=== PATIENT | female | born 1945 | race Caucasian/White ===

== ENCOUNTER 2017-02-12 13:54 | Outpatient (CLI) | payer MEDICARE, BC ==
[2017-02-12 16:10] LABS: #Basophils 0.1 thou/uL (0.0-0.2); #Eosinphils 0.1 thou/uL (0.0-0.7); #Lymphocytes 2.3 thou/uL (1.20-3.40); #Monocytes 0.5 thou/uL (0.11-0.59); #Neutrophils 2.9 thou/uL (1.40-6.50); %Basophils 1.2 % (0.0-1.0); %Eosinophils 1.2 % (0.0-10.0); %Lymphocytes 39.4 % (21.0-51.0); %Monocytes 7.9 % (0.0-10.0); Hematocrit 35.2 % (36.0-47.0); Mean Platelet Volume 9.5 fL (7.4-10.4); Red Blood Cell (RBC) Count 4.44 mill/uL (4.20-5.40); White Blood Cell (WBC) Count 5.8 thou/uL (4.8-10.8)
[2017-02-12 16:27] LABS: ALT (SGPT) 10 U/L (8-55); AST (SGOT) 17 U/L (5-34); Alkaline Phosphatase 181 U/L (40-150); Anion Gap 13 mmol/L (10-20); BUN (Urea Nitrogen) 13 mg/dL (9.8-20.1); Bilirubin, Total 0.4 mg/dL (0.2-1.2); Calc. Creatinine Clearance 0 mL/min (70-130); Calcium 8.6 mg/dL (7.8-10.44); Carbon Dioxide 23 mmol/L (23-31); Chloride 109 mmol/L (98-107); Estimated GFR-MDRD 45; Globulin 2.2 g/dL (2.4-3.5); Protein, Total 5.9 g/dL (6.0-8.3)
--- NOTE | 2017-02-12 18:08 | EKG ---
Test Reason : Blood Pressure : / mmHG Vent. Rate : 090 BPM Atrial Rate : 090 BPM P-R Int : 150 ms QRS Dur : 076 ms QT Int : 398 ms P-R-T Axes : 051 056 028 degrees QTc Int : 486 ms Sinus rhythm with occasional Premature ventricular complexes and Possible Premature atrial complexes with Abberant conduction Cannot rule out Anterior infarct (cited on or before 19-JAN-1999) Abnormal ECG When compared with ECG of 19-JAN-1999 11:57, Premature ventricular complexes are now Present Abberant conduction is now Present Confirmed by LAURA LA ([id number]) on 02/12/2017 6:08:32 PM Referred By: VAISHNAVI Confirmed By:LAURA LA
== END 2017-02-12 13:55 | disposition home or self-care (01) ==
LOC: LABBT 13:54
PROVIDERS: ATTEND Surgery
DX: Z01.818 Encounter for other preprocedural examination (principal); C50.919 Malignant neoplasm of unspecified site of unspecified female breast
CPT/HCPCS: 80053; 85025; 93005; 93010

== ENCOUNTER 2017-02-21 06:55 | Day surgery (SDC) | payer MEDICARE, BC ==
[2017-02-12 14:18] VITALS: BMI 29.8
[2017-02-21] MEDS ORDERED: Fentanyl 100 MCG/2 ML VIAL ONE (10:35)
--- NOTE | 2017-02-21 10:35 | NM ---
LEFT BREAST LYMPHOSCINTIGRAPHY: Date: 02/21/17 [facility] HEAD: Dr. Edmond. COMPLICATIONS: None. HISTORY: Left breast cancer. TECHNIQUE: Prior to the procedure, the risks and benefits of a left breast lymphoscintigraphy were explained to the patient who consented fully to the procedure. FINDINGS: Uptake is seen in the periareolar region of the left breast. There is also uptake in axillary lymph n ode consistent with the left axillary sentinel lymph node. IMPRESSION: Left axillary sentinel lymph node. POS: [facility]
[2017-02-21] MEDS ORDERED: Isosulfan Blue 50 MG/5 ML VIAL ONE (10:38)
[2017-02-21] MEDS ORDERED: Bupivacaine/Epinephrine 0.25% 30 ML VIAL ONE (10:38)
[2017-02-21] MEDS ORDERED: Lidocaine 2% PF 5 ML VIAL ONE (10:44)
[2017-02-21] MEDS ORDERED: Lidocaine 2% w/Epinephrine 1:200K 20 ML VIAL ONE (10:44)
[2017-02-21] MEDS ORDERED: CEFAZOLIN/Water 2 GM/20 ML SYRINGE ONE (10:49)
--- NOTE | 2017-02-21 12:17 | MMO ---
LEFT BREAST NEEDLE LOCALIZATION USING MAMMOGRAPHIC GUIDANCE AND SPECIMEN RADIOGRAPH: Date: 02/21/17 HISTORY: Left breast cancer. PROCEDURE: 1. Left breast needle localization using mammographic guidance. 2. Specimen radiograph. REHABILITATION THERAPY TECHNICIAN: Dr. Edmond. COMPLICATIONS: None. ANESTHESIA: 5 mL of buffered 1% lidocaine. TECHNIQUE: Prior to the procedure, the risks and benefits of a needle localization of left breast biopsy were ex plained to the patient and she consented fully to the procedure. Approach from lateral was performed. The biopsy clip was localized by the stereotactic grid. The late ral aspect of the breast was prepped with betadine. Lidocaine was used to anesthetize the skin and soft tissues down towards the biopsy clip. A 7.5 cm Abeelo francine needle was then placed perpendicular to the grid. A picture was taken, showing the needle immedia tely adjacent to the biopsy clip. The patient was taken out of compression and an orthogonal view was performed, showing the needle and biopsy clip in good position in relation to the biopsy clip. This was then secured to the patient. The patient was taken to day surgery for surgical excision. A specimen radiograph was performed while the patient was still in the operating room. The biopsy cli p was seen in the surgical specimen. The needle had been removed and the wire was still in place. IMPRESSION: Status post successful needle localization of left breast biopsy clip. POS: [facility]
[2017-02-21] MEDS ORDERED: diphenhydrAMINE 50 MG/ML VIAL ONE (12:55)
[2017-02-21] MEDS ORDERED: Propofol 200 MG/20 ML VIAL ONE (14:19)
[2017-02-21] MEDS ORDERED: Dexamethasone 20 MG/5 ML VIAL ONE (14:19)
[2017-02-21] MEDS ORDERED: Lidocaine 1% PF 5 ML VIAL ONE (14:19)
[2017-02-21] MEDS ORDERED: Ondansetron HCl/PF 4 MG/2 ML Vial ONE (14:19)
--- NOTE | 2017-02-21 14:39 | OP ---
PREOPERATIVE DIAGNOSIS: Left breast cancer. SURGEON: Woody Gonzales M.D. PROCEDURES PERFORMED: Lymphoscintigraphy, left needle localization lumpectomy with sentinel lymph no de biopsy x2. INDICATIONS: This is a 71-year-old female who had an abnormal mammogram, underwent core needle biops y in Radiology, which was positive for infiltrating ductal carcinoma. This was not palpable preopera tive. FINDINGS: Successful removal by specimen mammography. Two sentinel nodes were found, both negative by touch prep. PROCEDURE IN DETAIL: After informed consent was obtained, the patient was taken to the operating benito m and given general endotracheal anesthesia. She had undergone injection of radionucleotide as well as placement of the localization needle in radiology department. Lymphazurin 3 mL was infiltrated garcia bareolar and peritumoral. Then, the left breast, axilla and arm were prepped and draped in the usual fashion. The Neoprobe was used and a baseline count of 18 was performed. The transcutaneous counts of 50 was found. A transverse axillary incision was performed. In vivo counts of 65 found and then ex vivo counts of 75 found on a lymph node. The lymph node was ligated both the efferent and affere nt lymphatics and tied with 3-0 Vicryl ties. It was sent as sentinel node #1. The Neoprobe was rein serted and a second hot spot was found with in vivo counts of 25. Then a blue node was found and it had efferent and afferent lymphatics that were ligated with 3-0 Vicryl ties. Ex vivo counts of 55 we re found. It was sent as sentinel node #2. Hemostasis assured with electrocautery. While waiting o n the results of the sentinel nodes, a circumareolar incision was performed. The subcu divided sharp ly. The breast tissue was excised around the palpable needle circumferentially. It was then excised and marked with the needle lateral, a blue suture superior, and a black suture anterior. It was sen t to pathology for further analysis. Hemostasis was achieved with electrocautery. The wound thoroug hly irrigated. At this point, after control of hemostasis, the specimen mammogram came back that the clip was in the specimen. The subcutaneous was reapproximated with interrupted 3-0 Vicryl. The ski n closed with a running subcuticular 4-0 Rapide. Then the sentinel lymph nodes came back both negati ve by touch prep. Hemostasis assured. Subcutaneous reapproximated with interrupted 3-0 Vicryl and s kin closed with a running subcuticular 4-0 Rapide. Steri-Strips applied. Sterile bandage applied. The patient tolerated the procedure well and transferred to recovery in good condition. Sponge and n eedle count verified correct x2.
== END 2017-02-21 13:50 | disposition home or self-care (01) ==
LOC: SDC 06:55
PROVIDERS: ATTEND Surgery
PROC: 0HBU0ZZ Excision of Left Breast, Open Approach (ICD-10-PCS; principal; 2017-02-21)
PROC: 07B60ZX Excision of Left Axillary Lymphatic, Open Approach, Diagnostic (ICD-10-PCS; 2017-02-21)
DX: D05.12 Intraductal carcinoma in situ of left breast (principal); M19.90 Unspecified osteoarthritis, unspecified site; M06.9 Rheumatoid arthritis, unspecified; K21.9 Gastro-esophageal reflux disease without esophagitis; Z17.0 Estrogen receptor positive status [ER+]; Z79.890 Hormone replacement therapy; Z79.899 Other long term (current) drug therapy; Z86.010 Personal history of colon polyps; Z85.820 Personal history of malignant melanoma of skin; Z80.9 Family history of malignant neoplasm, unspecified; Z82.49 Family history of ischemic heart disease and other diseases of the circulatory system; Z82.3 Family history of stroke; Z90.710 Acquired absence of both cervix and uterus; Z90.49 Acquired absence of other specified parts of digestive tract; Z90.89 Acquired absence of other organs; Z90.722 Acquired absence of ovaries, bilateral; Z98.84 Bariatric surgery status; Z98.890 Other specified postprocedural states
CPT/HCPCS: 19281; 19301; 38525; 76098; 78195; 82962; 96374; A9541; Q9968; 36416; 88307; 88333; 88334; 88342; J1100; J1200; J2001; J2405; J2704; J3010

== ENCOUNTER 2017-03-22 10:30 | Inpatient (IN) | payer MEDICARE, BC ==
[2017-03-22 11:27] VITALS: BMI 29.2
[2017-03-26] MEDS ORDERED: Scopolamine 1.5 mg/72 hour Patch ONE (08:30)
[2017-03-26] MEDS ORDERED: Bupivacaine/Epinephrine 0.25% 30 ML VIAL ONE (09:17)
[2017-03-26] MEDS ORDERED: Fentanyl 100 MCG/2 ML VIAL ONE ×3 (09:21→13:42)
[2017-03-26] MEDS ORDERED: HYDROmorphone 0.5 MG/0.5 ML SYRINGE ONE ×2 (09:22→11:16)
[2017-03-26] MEDS ORDERED: CEFAZOLIN/Water 2 GM/20 ML SYRINGE ONE (09:25)
[2017-03-26] MEDS ORDERED: Promethazine HCl 25 MG/ML VIAL IM PRN (12:37)
[2017-03-26] MEDS ORDERED: Ondansetron HCl/PF 4 MG/2 ML Vial IVP PRN ×2 (12:37→15:22)
[2017-03-26] MEDS ORDERED: Morphine 4 MG/ML Carpuject SLOW IVP PRN ×2 (12:37→13:06)
[2017-03-26] MEDS ORDERED: Dextrose 5% in Water 1,000 ML IV PRN (12:37)
[2017-03-26] MEDS ORDERED: HYDROcodone/Acetaminophen 10/325 mg Tablet PO PRN ×2 (12:37)
[2017-03-26] MEDS ORDERED: Dextrose 50% Abboject 50 ML SYRINGE SLOW IVP PRN (12:37)
[2017-03-26] MEDS ORDERED: hydrALAZINE 20 MG/ML VIAL SLOW IVP PRN (12:37)
--- NOTE | 2017-03-26 12:58 | OP ---
PREOPERATIVE DIAGNOSIS: Left breast cancer. SURGEON: Woody Gonzales M.D. TRACTOR SWEEPER OPERATOR: Elizabeth Denise. PROCEDURE PERFORMED: Bilateral nipple-sparing mastectomy. INDICATIONS: A 71-year-old female who had undergone a needle localization lumpectomy on the left. S he came back with very extensive ductal carcinoma in situ with all margins were positive. FINDINGS: There was a seroma cavity on the left side, got the entire thing out, but it was right on the muscle, so I did take a little bit of muscle with specimen. No obvious palpable masses. DESCRIPTION OF PROCEDURE: After informed consent was obtained, the patient was taken to the operatin g room and given general endotracheal anesthesia. She was placed in the supine position. Her chest was prepped and draped in the usual fashion. Started on the right, a 6 cm incision was performed erica roximately 1 cm above the inframammary crease. This was done with the plasma blade and then on the r ight side, I found the plane between breast tissue and subcutaneous fat inferiorly down to the roller pneumatic ior fascia. Then a posterior dissection was performed utilizing the plasma blade to the level of cla vicle superior, the sternum medially, the latissimus laterally. Then, anterior, it was taken off bet ween the breast tissue and subcutaneous plane with the plasma blade. A suture was used to jose g the n ipple area which was blue and also anterior, then it was removed. Hemostasis achieved with the plasm a blade and electrocautery. The wound thoroughly irrigated. A drain was placed and the subcutaneous reapproximated with interrupted 3-0 Vicryl and skin closed with a running subcuticular 4-0 Rapide. I then moved to the left side. Again, an inferior breast incision was performed with the plasma blad e 1 cm above the inframammary crease, 6 cm in length. At this time, I went anterior, first found the plane between subcutaneous tissue and breast tissue and divided circumferentially to the level of cl avicle superior, the sternum medially down to the inferior portion of the breast and latissimus later al. Then went posteriorly along to include the pectoralis fascia. Now, there was a seroma cavity th at went down to the muscle, some muscle was excised with this. It was marked with a suture at the ni pple, blue, a black suture superior and a white suture lateral. Hemostasis achieved with electrocaut bridget and the plasma blade. The wound thoroughly irrigated. Drain was placed and brought out through a separate stab wound. The subcutaneous reapproximated with interrupted 3-0 Vicryl and skin closed w ith a running subcuticular 4-0 Rapide. Steri-Strips applied. Sterile bandage applied. The patient tolerated the procedure well and transferred to recovery in good condition. Sponge and needle count verified correct x2.
[2017-03-26] MEDS ORDERED: PROPOFOL 200 MG/20 ML VIAL ONE (13:30)
[2017-03-26] MEDS ORDERED: Lidocaine 1% PF 5 ML VIAL ONE (13:30)
[2017-03-26] MEDS ORDERED: Metoprolol Tartrate 5 MG/5 ML VIAL ONE (13:30)
[2017-03-26] MEDS ORDERED: Glycopyrrolate 0.2 MG/ML 5 ML SYRINGE ONE (13:30)
[2017-03-26] MEDS ORDERED: Ondansetron HCl/PF 4 MG/2 ML Vial ONE (13:30)
[2017-03-26] MEDS ORDERED: Dexamethasone 20 MG/5 ML VIAL ONE (13:30)
[2017-03-26] MEDS ORDERED: Naloxone HCl 0.4 mg/ml Vial IV PRN (15:22)
[2017-03-26] MEDS ORDERED: Fentanyl 5000 MCG/250 ML CADD IVPB PRN (15:22)
[2017-03-26] MEDS ORDERED: diphenhydrAMINE 50 MG/ML VIAL IVP PRN (15:22)
[2017-03-26] MEDS ORDERED: diphenhydrAMINE 25 MG CAP PO PRN (15:22)
[2017-03-26] MEDS ORDERED: diphenhydrAMINE 50 MG/ML VIAL IM PRN (15:22)
[2017-03-26] MEDS ORDERED: Zolpidem Tartrate 5 MG TAB PO PRN (15:22)
[2017-03-26] MEDS ORDERED: Communication Order-Pharmacy FS SCH (15:30)
[2017-03-26] MEDS ORDERED: fentaNYL Citrate/PF 2,000 MCG in Sodium Chloride 0.9% 60 ML IV PRN (15:30)
[2017-03-26] MEDS: D5 1/2 NS w/20 mEq KCL 1,000 ML IV SCH (15:34)
[2017-03-26] MEDS: Diabetic Tussin 200 MG/10 ML UDCUP PO PRN (22:24)
[2017-03-26] MEDS: Famotidine 20 MG TAB PO SCH ×2 (23:26→23:28)
[2017-03-27] MEDS: Diabetic Tussin 200 MG/10 ML UDCUP PO PRN (04:43)
[2017-03-27 05:33] LABS: #Lymphocytes 1.9 thou/uL (1.20-3.40); #Monocytes 0.9 thou/uL (0.11-0.59); #Neutrophils 4.8 thou/uL (1.40-6.50); %Basophils 0.2 % (0.0-1.0); %Eosinophils 0.1 % (0.0-10.0); %Lymphocytes 25.1 % (21.0-51.0); %Monocytes 12.1 % (0.0-10.0); %Neutrophils 62.5 % (42.0-75.0); Hemoglobin 9.2 g/dL (12.0-16.0); Mean Corpuscular HGB CONC 30.9 g/dL (32.0-36.0); Mean Corpuscular Hemoglobin 24.7 pg (27.0-31.0); Mean Corpuscular Volume 79.9 fl (81.0-99.0); Mean Platelet Volume 9.2 fL (7.4-10.4); Platelet Count 259 thou/uL (130-400); RBC Distribution Width 20.7 % (11.5-14.5); Red Blood Cell (RBC) Count 3.74 mill/uL (4.20-5.40); White Blood Cell (WBC) Count 7.7 thou/uL (4.8-10.8)
[2017-03-27 05:52] LABS: Anion Gap 11 mmol/L (10-20); BUN (Urea Nitrogen) 11 mg/dL (9.8-20.1); Calc. Creatinine Clearance 84 mL/min (70-130); Calcium 8.2 mg/dL (7.8-10.44); Carbon Dioxide 24 mmol/L (23-31); Chloride 107 mmol/L (98-107); Estimated GFR-MDRD 75; Glucose 141 mg/dL (80-115); Sodium 138 mmol/L (136-145)
[2017-03-27] MEDS: Famotidine 20 MG TAB PO SCH (08:54)
[2017-03-27] MEDS: D5 1/2 NS w/20 mEq KCL 1,000 ML IV SCH (08:55)
[2017-03-27] MEDS ORDERED: Enoxaparin Sodium 40 MG/0.4 ML SYRINGE SC SCH (09:00)
--- NOTE | 2017-03-27 10:15 | DIS ---
DATE OF ADMISSION: 03/26/2017 DATE OF DISCHARGE: 03/27/2017 ADMISSION DIAGNOSIS: Left breast ductal carcinoma in situ. DISCHARGE DIAGNOSIS: Left breast ductal carcinoma in situ. PROCEDURES: Bilateral nipple-sparing mastectomy by Dr. Gonzales without complication. CONDITION AT DISCHARGE: Improved. STAFF: Christian. Prescriptions given for Villisca. HOSPITAL COURSE: The patient is doing well on postop day #1, her pain is controlled on SWITCHBOARD OPERATOR ASSISTANT. She is ambulatory, minimal swelling. Her wounds were all healing well. ASSESSMENT: Postoperative day #1, bilateral mastectomy. PLAN: Discharge home today on Villisca. Follow up with Dr. Gonzales next week for drain removal.
[2017-03-27 12:41] VITALS: BP 180/77; TEMP 98.7
[2017-03-27] MEDS ORDERED: HYDROcodone/Acetaminophen 10/325 mg Tablet ONE (12:59)
[2017-03-27] MEDS ORDERED: HYDROcodone/Acetaminophen 10/325 mg Tablet PO SCH (13:00)
== END 2017-03-27 14:02 | disposition home health service (06) | DRG 583 ==
LOC: SURG A 03-26 06:04 → 3SE 03-26 14:17
PROVIDERS: ADMIT Surgery; ATTEND Surgery
PROC: 0HTV0ZZ Resection of Bilateral Breast, Open Approach (ICD-10-PCS; principal; 2017-03-26)
DX: D05.12 Intraductal carcinoma in situ of left breast (principal); N64.89 Other specified disorders of breast; Z85.820 Personal history of malignant melanoma of skin; Z87.01 Personal history of pneumonia (recurrent); Z90.710 Acquired absence of both cervix and uterus; Z90.49 Acquired absence of other specified parts of digestive tract; Z98.84 Bariatric surgery status; Z90.722 Acquired absence of ovaries, bilateral
CPT/HCPCS: 36415; 80048; 85025; 88307; J0131; J0360; J1100; J1170; J2001; J2405; J2704; J3010; J7050; Q9968

== ENCOUNTER 2017-03-22 10:58 | Outpatient (CLI) | payer MEDICARE, BC ==
[2017-03-22 12:38] LABS: #Basophils 0.1 thou/uL (0.0-0.2); #Eosinphils 0.1 thou/uL (0.0-0.7); #Lymphocytes 1.9 thou/uL (1.20-3.40); #Monocytes 0.5 thou/uL (0.11-0.59); #Neutrophils 3.4 thou/uL (1.40-6.50); %Basophils 0.9 % (0.0-1.0); %Eosinophils 1.3 % (0.0-10.0); %Lymphocytes 31.6 % (21.0-51.0); %Monocytes 8.7 % (0.0-10.0); %Neutrophils 57.5 % (42.0-75.0); Hemoglobin 10.6 g/dL (12.0-16.0); Mean Corpuscular HGB CONC 31.1 g/dL (32.0-36.0); Mean Corpuscular Hemoglobin 24.7 pg (27.0-31.0); Mean Corpuscular Volume 79.5 fl (81.0-99.0); Mean Platelet Volume 9.1 fL (7.4-10.4); Platelet Count 252 thou/uL (130-400); RBC Distribution Width 20.9 % (11.5-14.5); White Blood Cell (WBC) Count 5.9 thou/uL (4.8-10.8)
[2017-03-22 13:03] LABS: ALT (SGPT) 17 U/L (8-55); AST (SGOT) 24 U/L (5-34); Albumin 3.8 g/dL (3.4-4.8); Alkaline Phosphatase 180 U/L (40-150); Anion Gap 12 mmol/L (10-20); BUN (Urea Nitrogen) 13 mg/dL (9.8-20.1); Bilirubin, Total 0.4 mg/dL (0.2-1.2); Calc. Creatinine Clearance 0 mL/min (70-130); Calcium 8.8 mg/dL (7.8-10.44); Carbon Dioxide 22 mmol/L (23-31); Chloride 108 mmol/L (98-107); Estimated GFR-MDRD 69; Globulin 2.3 g/dL (2.4-3.5); Glucose 92 mg/dL (80-115); Potassium 4.1 mmol/L (3.5-5.1); Protein, Total 6.1 g/dL (6.0-8.3); Sodium 138 mmol/L (136-145)
== END 2017-03-22 10:59 | disposition home or self-care (01) ==
LOC: LABBT 10:58
PROVIDERS: ATTEND Surgery
DX: Z01.818 Encounter for other preprocedural examination (principal); C50.912 Malignant neoplasm of unspecified site of left female breast
CPT/HCPCS: 80053; 85025; 93005; 93010

== ENCOUNTER 2017-05-11 11:09 | Day surgery (SDC) | payer MEDICARE, BC ==
[2017-05-10 11:23] VITALS: BMI 29.4
[~2017-05-11 11:09] MED LIST: Dexamethasone 20 MG/5 ML VIAL ONE; Lidocaine 1% PF 5 ML VIAL ONE; Ondansetron HCl/PF 4 MG/2 ML Vial ONE; Propofol 200 MG/20 ML VIAL ONE; diphenhydrAMINE 50 MG/ML VIAL ONE; ePHEDrine/0.9% NaCl/PF SYRINGE 50 mg/10 ml ONE
[2017-05-11] MEDS ORDERED: Fentanyl 250 MCG/5 ML VIAL ONE ×2 (11:51→18:34)
[2017-05-11] MEDS ORDERED: Midazolam HCl 2 mg/2 ml Vial ONE (11:51)
[2017-05-11] MEDS ORDERED: HYDROcodone/Acetaminophen 10/325 mg Tablet PO PRN ×2 (12:02)
[2017-05-11] MEDS ORDERED: traMADol HCl 50 MG TAB PO PRN ×2 (12:02)
[2017-05-11] MEDS ORDERED: Ropivacaine 0.2% 550 ML 550 ML NERVE BLCK SCH ×2 (12:02→12:15)
[2017-05-11] MEDS ORDERED: Ketorolac Tromethamine 30 MG/ML VIAL IVP PRN (12:02)
[2017-05-11] MEDS ORDERED: Promethazine HCl 25 MG/ML VIAL IM PRN (12:02)
[2017-05-11] MEDS ORDERED: Ondansetron HCl/PF 4 MG/2 ML Vial IVP PRN (12:02)
[2017-05-11] MEDS ORDERED: Zolpidem Tartrate 5 MG TAB PO PRN (12:02)
[2017-05-11] MEDS ORDERED: Fentanyl 100 MCG/2 ML VIAL IV PRN (12:03)
[2017-05-11] MEDS ORDERED: Heparin 5,000 UNITS/ML VIAL ONE (12:05)
[2017-05-11] MEDS ORDERED: Scopolamine 1.5 mg/72 hour Patch ONE (12:05)
[2017-05-11 12:12] LABS: Anion Gap 10 mmol/L (10-20); BUN (Urea Nitrogen) 17 mg/dL (9.8-20.1); Calc. Creatinine Clearance 72 mL/min (70-130); Carbon Dioxide 26 mmol/L (23-31); Chloride 106 mmol/L (98-107); Estimated GFR-MDRD 64; Glucose 112 mg/dL (80-115); Potassium 3.8 mmol/L (3.5-5.1); Sodium 138 mmol/L (136-145)
[2017-05-11] MEDS ORDERED: CEFAZOLIN/Water 2 GM/20 ML SYRINGE ONE (12:39)
[2017-05-11] MEDS ORDERED: Sodium Chloride 0.9% 10 ML ONE ×2 (12:45→16:52)
[2017-05-11] MEDS ORDERED: Bupivacaine/Epinephrine 0.25% 30 ML VIAL ONE (12:45)
[2017-05-11] MEDS ORDERED: Gentamicin 80 MG/2 ML VIAL ONE ×2 (12:45→16:52)
[2017-05-11] MEDS ORDERED: EPINEPHrine 1 MG/ML AMP ONE (14:11)
[2017-05-11] MEDS ORDERED: Ropivacaine 0.2% HCl/PF 20 ML ONE (14:28)
[2017-05-11] MEDS ORDERED: Bupivacaine 0.25% HCL 30 ML VIAL ONE (18:23)
[2017-05-11] MEDS ORDERED: HYDROcodone/Acetaminophen 5/325 mg Tablet ONE (19:18)
--- NOTE | 2017-05-14 13:33 | OP ---
PREOPERATIVE DIAGNOSES: 1. Breast cancer. 2. Status post bilateral mastectomy. POSTOPERATIVE DIAGNOSES: 1. Breast cancer. 2. Status post bilateral mastectomy. PROCEDURE: 1. Bilateral placement of acellular dermal matrix and breast reconstruction, bilateral (02737.50) 2. Placement of tissue property maintenance supervisor for breast reconstruction (54571.5) DESCRIPTION OF PROCEDURE: Following induction of adequate anesthesia, the patient was prepped and dr aped in usual sterile fashion in supine position. A right inframammary crease incision was made. Di ssection was carried sharply down through the subcutaneous tissue to the underlying pectoralis fascia . Subsequently, an adequate prepectoral pocket was made to house an Artoura tissue property maintenance supervisor. A 16 x 20 cm Strattice acellular dermal matrix was placed in the wound just anterior to the Art[place]ra tissue property maintenance supervisor and filled to a volume of 400 mL on the right. The ADM was secured peripherally as well as to the property maintenance supervisor with 3-0 PDS suture. Inferiorly, the ADM was secured to the inframammary crease usin g interrupted and running 2-0 PDS suture. The Artoura was a 13 cm wide high profile tissue property maintenance supervisor. The property maintenance supervisor was then accessed percutaneously and its port. It was filled to its respective volume s using a closed infiltration system and sterile injectable saline. The incision was closed with 3-0 PDS suture and 3-0 Monocryl suture after the field. Prior to placement of the property maintenance supervisor, the field w as copiously irrigated with triple antibiotic solution as well as dilute Betadine solution and inspec alejandra for meticulous hemostasis and a skin barrier was placed. The patient tolerated the procedure wel l. Similar procedure was done on the left side, but the volume is felt to 300 mL. The patient tolerated the procedure well.
== END 2017-05-11 22:40 | disposition home or self-care (01) ==
LOC: SDC 11:09
PROVIDERS: ATTEND Plastic Surgery
PROC: 0HHV0NZ Insertion of Tissue Expander into Bilateral Breast, Open Approach (ICD-10-PCS; principal; 2017-05-11)
PROC: 0HHV0NZ Insertion of Tissue Expander into Bilateral Breast, Open Approach (ICD-10-PCS; 2017-05-11)
DX: Z42.1 Encounter for breast reconstruction following mastectomy (principal); K21.9 Gastro-esophageal reflux disease without esophagitis; M06.9 Rheumatoid arthritis, unspecified; D64.9 Anemia, unspecified; Z79.51 Long term (current) use of inhaled steroids; Z79.899 Other long term (current) drug therapy; Z88.8 Allergy status to other drugs, medicaments and biological substances; Z85.3 Personal history of malignant neoplasm of breast; Z80.0 Family history of malignant neoplasm of digestive organs
CPT/HCPCS: 15777; 19357; 80048; A4306; 36415; A4216; J0171; J1100; J1200; J1580; J1644; J2001; J2250; J2405; J2704; J2795; J3010; J3370; J3490; S0020

== ENCOUNTER 2017-06-01 14:02 | Inpatient (IN) | payer MEDICARE, BC ==
[2017-06-01] MEDS ORDERED: cefTRIAXone\\ROCEPHIN 2 GM in Sodium Chloride 0.9% 100 ML IVPB SCH (21:15)
[2017-06-01] MEDS ORDERED: Zolpidem Tartrate 5 MG TAB PO PRN ×2 (21:35→22:00)
[2017-06-01] MEDS ORDERED: Milk Of Magnesia 30 ML UDCUP PO PRN (21:35)
[2017-06-01] MEDS ORDERED: Metoclopramide HCl 10 MG/2 ML VIAL IVP PRN (21:36)
[2017-06-01] MEDS ORDERED: Ondansetron HCl/PF 4 MG/2 ML Vial IVP PRN (21:36)
[2017-06-01] MEDS ORDERED: Promethazine HCl 25 MG/ML VIAL IM PRN ×2 (21:37)
[2017-06-01] MEDS ORDERED: cloNIDine 0.1 MG TAB PO PRN (21:38)
[2017-06-01] MEDS ORDERED: Labetalol HCl 100 MG/20 ML VIAL SLOW IVP PRN (21:40)
[2017-06-01] MEDS ORDERED: Acetaminophen 325 MG TAB PO PRN (21:41)
[2017-06-01] MEDS ORDERED: Benzonatate 100 MG CAP PO PRN ×2 (21:42)
[2017-06-01] MEDS ORDERED: Cepastat Lozenges 1 LOZ PO PRN (21:42)
[2017-06-01] MEDS ORDERED: Guaifenesin DM 100-10/5 ML UDCUP PO PRN (21:43)
[2017-06-01] MEDS ORDERED: diphenhydrAMINE 25 MG CAP PO PRN (21:44)
[2017-06-01] MEDS ORDERED: diphenhydrAMINE 50 MG CAP PO PRN (21:44)
[2017-06-01] MEDS ORDERED: Simethicone Chewable 80 MG TAB PO PRN (21:48)
[2017-06-01] MEDS ORDERED: Calcium Carbonate 500 MG ChewTAB PO PRN ×2 (21:48→21:49)
[2017-06-01 22:50] LABS: Anisocytosis SLIGHT = 6-15 cells (100X) (0-5/hpf); Band 2 % (5-11); Hemoglobin 9.6 g/dL (12.0-16.0); Hypochromia SLIGHT = 6-15 cells (100X) (0-5/hpf); Lymphocytes 29 % (21-51); MDiff Complete? YES; Mean Corpuscular Hemoglobin 22.4 pg (27.0-31.0); Mean Corpuscular Volume 72.1 fl (81.0-99.0); Microcytosis SLIGHT = 6-15 cells (100X) (0-5/hpf); Monocytes 15 % (0-10); Neutrophil 52 % (42-75); Ovalocytes SLIGHT = 2-5 cells (100X) (0-1/hpf); Platelet Count 313 thou/uL (130-400); RBC Distribution Width 19.1 % (11.5-14.5); Reactive Lymphocytes 2 % (0-10); Red Blood Cell (RBC) Count 4.31 mill/uL (4.20-5.40); White Blood Cell (WBC) Count 6.4 thou/uL (4.8-10.8)
[2017-06-01 23:05] LABS: ALT (SGPT) 18 U/L (8-55); AST (SGOT) 26 U/L (5-34); Albumin 3.8 g/dL (3.4-4.8); Alkaline Phosphatase 166 U/L (40-150); Anion Gap 12 mmol/L (10-20); BUN (Urea Nitrogen) 14 mg/dL (9.8-20.1); Bilirubin, Total 0.3 mg/dL (0.2-1.2); Calc. Creatinine Clearance 0 mL/min (70-130); Calcium 8.6 mg/dL (7.8-10.44); Carbon Dioxide 24 mmol/L (23-31); Chloride 106 mmol/L (98-107); Estimated GFR-MDRD 70; Globulin 2.3 g/dL (2.4-3.5); Glucose 102 mg/dL (80-115); Potassium 3.8 mmol/L (3.5-5.1); Protein, Total 6.1 g/dL (6.0-8.3); Sodium 138 mmol/L (136-145)
[2017-06-01] MEDS: Vancomycin HCl 1 GM in Premix Bag 1 BAG IVPB SCH (23:37)
[2017-06-01] MEDS: Piperacillin/Tazobactam 3.375 GM in Sodium Chloride 0.9% 100 ML IVPB SCH (23:37)
[2017-06-01] MEDS: Heparin 5,000 UNITS/ML VIAL SC SCH (23:47)
--- NOTE | 2017-06-02 00:22 | HP ---
DATE OF ADMISSION: 06/01/2017 CHIEF COMPLAINT: Left breast tissue land inspector. HISTORY OF PRESENT ILLNESS: The patient underwent mastectomy with Dr. Gonzales approximately a month ago. I did delayed immediate breast reconstruction for the patient approximately 2 weeks postop. In the intervening period between the mastectomy and reconstruction, the patient was seen. She noted some breast pain, but the patient was watched very closely with no visible signs of infection. I elected to perform a prepectoral acellular dermal matrix space tissue land inspector reconstruction. The patient called today complaining of increasing or continued pain. She is requiring pain medicine at night. With that I asked her to come to clinic for examination. On presentation, fluid is around her left tissue land inspector with some increased erythema of the skin flap. She has not been feeling well overall, but she is also dealing with a round of shingles. PAST MEDICAL HISTORY: 1. Breast cancer. 2. Reflux. 3. Rheumatoid arthritis. MEDICATIONS: Prilosec, Cymbalta, methotrexate, gabapentin, Valtrex. PAST SURGICAL HISTORY: As above. REVIEW OF SYSTEMS: Otherwise, noncontributory. PHYSICAL EXAMINATION: The patient has increased erythema and bruising over the flap. Fluid was easily palpable. I identified where the port was and placed the needle subcutaneously underneath her mastectomy flap, but outside the land inspector. Approximately, 100 mL of seroma fluid were aspirated. This was sent off for culture analysis. ASSESSMENT: Possible tissue land inspector infection. I discussed with the patient the need for intraoperative implant removal versus implant salvage maneuvers. We will admit her to the hospital. The patient wants to go to a grandson's alliance party prior to admission. She is not toxic in any way, and I think this is a reasonable thing to do. I will consult Dr. Leonard for his assistance. We will get microbiology cultures of the fluid and proceed as indicated. [place]
[2017-06-02 01:32] VITALS: BMI 29.8
[2017-06-02] MEDS: HYDROcodone/Acetaminophen 5/325 mg Tablet PO PRN ×4 (05:18→21:17)
[2017-06-02] MEDS: Piperacillin/Tazobactam 3.375 GM in Sodium Chloride 0.9% 100 ML IVPB SCH ×3 (05:19→18:11)
[2017-06-02] MEDS: Heparin 5,000 UNITS/ML VIAL SC SCH ×3 (05:19→21:15)
[2017-06-02] MEDS ORDERED: Simethicone Chewable 80 MG TAB PO PRN (08:06)
[2017-06-02] MEDS: Calcium Carbonate 600 MG TAB PO SCH (08:07)
[2017-06-02] MEDS: Folic Acid 1 MG TAB PO SCH (08:07)
[2017-06-02] MEDS: Furosemide 20 MG TAB PO SCH (08:07)
[2017-06-02] MEDS: DULoxetine 60 MG CAP PO SCH (08:08)
[2017-06-02] MEDS ORDERED: TRETINOIN 0.05% TOP SCH (08:15)
[2017-06-02] MEDS: Diphenoxylate HCl/Atropine Tablet PO SCH ×3 (08:46→21:08)
[2017-06-02] MEDS ORDERED: valACYclovir 500 MG TAB PO SCH (09:00)
[2017-06-02] MEDS: Vancomycin HCl 1 GM in Premix Bag 1 BAG IVPB SCH ×2 (10:21→23:22)
[2017-06-02] MEDS: Anastrozole 1 MG TAB PO SCH (10:21)
[2017-06-02] MEDS: Potassium Chloride 20 MEQ TAB PO SCH (10:24)
[2017-06-02] MEDS: Prenatal Vitamin 1 TAB PO SCH (10:24)
[2017-06-02] MEDS: valACYclovir 500 MG TAB PO SCH ×2 (16:07→21:17)
--- NOTE | 2017-06-02 19:26 | CON ---
DATE OF CONSULTATIOSN: 06/02/2017 REASON FOR CONSULTATION: Changes in the left breast reconstruction site with concern for possible in fection. HISTORY OF PRESENT ILLNESS: A 71-year-old patient who has a history of breast cancer with bilateral mastectomy and delayed immediate breast reconstruction about 2 weeks postoperatively. Subsequently, she underwent prepectoral acellular dermal matrix space tissue junior project manager reconstruction and then becau se of development of pain, bilateral but more intense on the left side, she was seen by Dr. Sheppard who was concerned with possible infectious complication. There was fluid around the left tissue junior project manager with some erythema of the skin flap. An aspirate was completed and cultures are pending. She denie s any headaches, visual symptoms, sore throat, odynophagia, dysphagia. No cough, sputum production, chest pain outside the breast reconstruction site. No back pain, no abdominal pain or diarrhea. No genitourinary symptoms. No joint symptoms except for chronic knee symptoms related to arthrosis. Demi ugalde has chronic lymphedema, venous stasis in lower extremities. PAST MEDICAL HISTORY: Breast cancer with bilateral mastectomies. She did not have any lymph node in volvement, GERD, rheumatoid arthritis. MEDICATIONS: Currently, medication list at home included Prilosec, Cymbalta, methotrexate, gabapenti n, Valtrex. She has a recent episode of herpes zoster, which is improving and has already dried up a fter treatment with Valtrex. Medications in the hospital situation in addition to the above include Arimidex, hydrocodone and pipe racillin-tazobactam and vancomycin. FAMILY HISTORY: Noncontributory. PHYSICAL EXAMINATION: VITAL SIGNS: Temperature has been normal, blood pressure 140/81, pulse 61, respirations 16, O2 sat 1 00% room air. GENERAL: There is no distress. SKIN: Shows there is mastectomy/reconstruction sites, though a very little erythema. It is probably more hyperemia of the skin and very mild in the left side. The right side appears to be normal. Th ere is no tenderness. The area is quite supple to palpation. There is no drainage noticeable. No l ymphadenopathy. HEENT: Noncontributory. LUNGS: Clear. HEART: S1, S2, regular rate. No S3, S4, no murmurs. ABDOMEN: Soft, nondistended, nontender. No bladder distention. EXTREMITIES: Chronic osteoarthrosis changes in the knees. Range of motion is somewhat preserved. S he has quite a bit of crepitus. Lymphedema of lower extremities. Pulses are 1+ in dorsalis pedis. Cap refill is normal. Plantar responses are flexor. NEUROLOGIC: Cognitive function appears to be intact. Strength in all extremities is preserved. LABORATORY DATA: White cell count 6.4, hemoglobin 9.6, platelets 313, 52% neutrophils and 2% bands, 29% lymphocytes. Chemistry was not remarkable except for alkaline phosphatase 166, globulin 3.6. I do not have any cytology from the fluid. There is a Gram stain from the cultures submitted. Few WBC s were seen, no organisms seen. Cultures are thus far no growth at 12 hours. The Acid fast bacilli culture was not assessed because it was submitted in a swab which is not a specimen acceptable by the laboratory for AFB cultures. It need to be either tissue sample or fluid submitted. ASSESSMENT AND PLAN: Breast cancer with bilateral mastectomies and reconstructive surgery, now with concern for seroma versus infection on the left side. The area had a few WBCs. We will follow up th e cultures and if they are negative, then I assume that it is not infected, although there is still p ossibility of infection and we may have to be resample to submit the AFB cultures in addition to rout ine. Continue broad-spectrum coverage until final results of cultures.
[2017-06-02] MEDS ORDERED: Mometasone Furoate 120 PUFF 220 MCG INH SCH (21:00)
[2017-06-02] MEDS: clonazePAM 0.5 MG TAB PO SCH (21:08)
[2017-06-02] MEDS: Gabapentin 300 MG CAP PO SCH (21:17)
[2017-06-02] MEDS: Montelukast Sodium 10 mg Tablet PO SCH (21:17)
[2017-06-02 22:45] LABS: Vancomycin, Trough 11.6 ug/mL
[2017-06-03] MEDS: Piperacillin/Tazobactam 3.375 GM in Sodium Chloride 0.9% 100 ML IVPB SCH ×4 (00:43→18:41)
[2017-06-03] MEDS: HYDROcodone/Acetaminophen 5/325 mg Tablet PO PRN ×3 (03:29→22:36)
[2017-06-03] MEDS: Heparin 5,000 UNITS/ML VIAL SC SCH ×3 (06:39→22:37)
[2017-06-03] MEDS: valACYclovir 500 MG TAB PO SCH ×3 (06:39→22:59)
[2017-06-03] MEDS: Anastrozole 1 MG TAB PO SCH (09:12)
[2017-06-03] MEDS: Folic Acid 1 MG TAB PO SCH (09:13)
[2017-06-03] MEDS: DULoxetine 60 MG CAP PO SCH (09:13)
[2017-06-03] MEDS: Prenatal Vitamin 1 TAB PO SCH (09:13)
[2017-06-03] MEDS: Calcium Carbonate 600 MG TAB PO SCH (09:13)
[2017-06-03] MEDS: Furosemide 20 MG TAB PO SCH (09:13)
[2017-06-03] MEDS: Diphenoxylate HCl/Atropine Tablet PO SCH ×3 (09:13→22:35)
[2017-06-03] MEDS: Potassium Chloride 20 MEQ TAB PO SCH (09:14)
[2017-06-03] MEDS: Vancomycin HCl 1 GM in Premix Bag 1 BAG IVPB SCH (10:36)
[2017-06-03] MEDS ORDERED: FLUTICASONE FUROATE INH SCH (21:00)
[2017-06-03] MEDS ORDERED: [UNRECOGNIZED DRUG - OTHER] INH SCH (21:00)
[2017-06-03 22:30] LABS: Vancomycin, Trough 18.8 ug/mL
[2017-06-03] MEDS: Gabapentin 300 MG CAP PO SCH (22:35)
[2017-06-03] MEDS: Montelukast Sodium 10 mg Tablet PO SCH (22:36)
[2017-06-03] MEDS: clonazePAM 0.5 MG TAB PO SCH (22:37)
[2017-06-04] MEDS: Heparin 5,000 UNITS/ML VIAL SC SCH ×2 (01:18→13:02)
[2017-06-04] MEDS: Vancomycin HCl 1 GM in Premix Bag 1 BAG IVPB SCH ×2 (02:42→10:50)
[2017-06-04] MEDS: Piperacillin/Tazobactam 3.375 GM in Sodium Chloride 0.9% 100 ML IVPB SCH ×3 (02:43→12:52)
[2017-06-04] MEDS: valACYclovir 500 MG TAB PO SCH ×3 (06:29→18:46)
[2017-06-04] MEDS: Prenatal Vitamin 1 TAB PO SCH (08:19)
[2017-06-04] MEDS: Potassium Chloride 20 MEQ TAB PO SCH (08:19)
[2017-06-04] MEDS: Calcium Carbonate 600 MG TAB PO SCH (08:19)
[2017-06-04] MEDS: DULoxetine 60 MG CAP PO SCH (08:19)
[2017-06-04] MEDS: Furosemide 20 MG TAB PO SCH (08:20)
[2017-06-04] MEDS: Folic Acid 1 MG TAB PO SCH (08:21)
[2017-06-04] MEDS: Diphenoxylate HCl/Atropine Tablet PO SCH ×2 (08:24→14:43)
[2017-06-04] MEDS: Anastrozole 1 MG TAB PO SCH (08:27)
[2017-06-04] MEDS: HYDROcodone/Acetaminophen 5/325 mg Tablet PO PRN ×2 (11:11→18:48)
[2017-06-04 11:38] VITALS: TEMP 98.2
[2017-06-04 15:50] VITALS: BP 132/78
--- NOTE | 2017-06-05 06:49 | PRG ---
DATE OF SERVICE: 06/04/2017 Ms. Huang is feeling better with less pain, but still some pain in the right and left breasts, no abdo markell pain, no diarrhea. PHYSICAL EXAMINATION: VITAL SIGNS: Normal. LUNGS: Clear. HEART: S1, S2, regular rate. ABDOMEN: Soft. BREASTS: The right and left breast appeared the same with no erythema, a little tenderness. Cultures are negative at 72 hours. The plan now is to discontinue antimicrobial therapy and follow u p in the outpatient setting. The AFB cultures were not set up and a repeat aspirate might be necessa ry depending on clinical progress.
--- NOTE | 2017-06-05 14:18 | DIS ---
DATE OF ADMISSION: 06/01/2017 DATE OF DISCHARGE: 06/05/2017 REASON FOR ADMISSION: Possible breast implant infection. HOSPITAL COURSE: The patient is a 71-year-old female, status post breast reconstruction. She presen alejandra back in clinic with a new fluid accumulation around her left breast tissue track grinder. She also villa d a significant amount of malaise and pain. Her breast was also slightly erythematous. Cultures wer e taken of the periprosthetic fluid. The patient was admitted. On admission, her white count was no rmal. Cultures eventually grew out nothing. The possible confounding fact is the patient also had s hingles. This could have been the explanation for her general malaise. She was discharged home afte r receiving IV antibiotics in the hospital. In the hospital, Dr. Leonard saw her and assisted with ant ibiotic selection. DISCHARGE INSTRUCTIONS: 1. Continue home medications. No changes. 2. Follow up with Dr. Sheppard in 1 week.
[2017-06-10] MEDS ORDERED: Ergocalciferol 1.25 MG(50,000 UNITS) CAP PO SCH (08:00)
== END 2017-06-04 19:00 | disposition home or self-care (01) | DRG 921 ==
LOC: SJJU 20:23
PROVIDERS: ADMIT Plastic Surgery; ATTEND Plastic Surgery
DX: T85.79XA Infection and inflammatory reaction due to other internal prosthetic devices, implants and grafts, initial encounter (principal); M06.9 Rheumatoid arthritis, unspecified; B02.9 Zoster without complications; K21.9 Gastro-esophageal reflux disease without esophagitis; Z90.13 Acquired absence of bilateral breasts and nipples; Z85.3 Personal history of malignant neoplasm of breast
CPT/HCPCS: 36415; 80053; 80202; 85025; 87070; 87116; 87205; 87206; J0696; J1644; J2543; J2765; J3370; J7050

== ENCOUNTER 2017-10-01 06:01 | Day surgery (SDC) | payer MEDICARE, BC ==
[2017-09-28 09:38] VITALS: BMI 28.3
[2017-10-01] MEDS ORDERED: CEFAZOLIN/Water 2 GM/20 ML SYRINGE ONE (06:20)
[2017-10-01] MEDS ORDERED: Heparin 5,000 UNITS/ML VIAL ONE (06:20)
[2017-10-01] MEDS ORDERED: Fentanyl 250 MCG/5 ML VIAL ONE (06:38)
[2017-10-01] MEDS ORDERED: Midazolam HCl 2 mg/2 ml Vial ONE (06:38)
[2017-10-01] MEDS ORDERED: Gentamicin 80 MG/2 ML VIAL ONE (06:53)
[2017-10-01] MEDS ORDERED: Sodium Chloride 0.9% 20 ML ONE (06:53)
[2017-10-01] MEDS ORDERED: Bupivacaine/Epinephrine 0.25% 30 ML VIAL ONE (06:53)
[2017-10-01] MEDS ORDERED: Fentanyl 100 MCG/2 ML VIAL ONE ×2 (10:29→10:58)
[2017-10-01] MEDS ORDERED: PROPOFOL 200 MG/20 ML VIAL ONE (10:40)
[2017-10-01] MEDS ORDERED: Lidocaine 1% PF 5 ML VIAL ONE (10:40)
[2017-10-01] MEDS ORDERED: Ondansetron HCl/PF 4 MG/2 ML Vial ONE (10:40)
[2017-10-01] MEDS ORDERED: Dexamethasone 20 MG/5 ML VIAL ONE (10:40)
[2017-10-01] MEDS ORDERED: Promethazine HCl 25 MG/ML VIAL IM/IV PRN (11:09)
[2017-10-01] MEDS ORDERED: Ondansetron HCl/PF 4 MG/2 ML Vial IVP PRN (11:09)
[2017-10-01] MEDS ORDERED: Non-Formulary Medication 1 EACH PO PRN (11:09)
[2017-10-01] MEDS ORDERED: HYDROcodone/Acetaminophen 5/325 mg Tablet ONE (12:16)
--- NOTE | 2017-10-02 10:14 | OP ---
DATE OF PROCEDURE: 10/01/2017 PREOPERATIVE DIAGNOSES: 1. Breast cancer. 2. Status post bilateral mastectomy. 3. Status post bilateral placement of tissue expanders. PROCEDURE PERFORMED: Bilateral replacement of tissue expanders with breast prosthesis. With kianna triplett ([id number]). OPERATIVE FINDINGS: 1. Right breast implant, reference [id number], serial# [id number]. 2. Left breast implant, reference [id number], serial# [id number]. OPERATIVE PROCEDURE: Following induction of adequate anesthesia, the patient was prepped and draped in usual sterile fashion in supine position. Attention was turned to the right breast. The right in framammary crease scar was incised. Dissection was carried sharply down through the subcutaneous tis florin to identify the underlying Strattice which was incised. The pocket was inspected. A couple of s mall areas of redundant Strattice which was not incorporated were excised. The pocket was then opene d superiorly from 10 o'clock to 12 o'clock to 2 o'clock to allow for superior expansion. The pocket was copiously irrigated and inspected for meticulous hemostasis with a skin barrier placed prior to p lacement of the above implant. The incision was closed with 3-0 PDS suture and 3-0 Monocryl suture. Attention was turned to the left breast. A similar procedure was performed except for some important differences. None of the Strattice had incorporated. This was removed in its entirety. I elected to change to a submuscular pocket. This required elevation of the pectoralis major as well as its el evation superiorly. In order to keep the pectoralis major above the eventual implant, it was sutured into place in several places using interrupted 2-0 PDS suture from capsule to capsule anteriorly and posteriorly around the edge of the pectoralis major. Sutures were placed from approximately 2 o'wendy ck to the 6 o'clock to 8 o'clock securing the pectoralis major. Sizers were used to determine what i mplant gave the best symmetry. The above was chosen. The remainder of the closure was done in a sim ilar fashion. The patient tolerated the procedure well.
== END 2017-10-01 13:00 | disposition home or self-care (01) ==
LOC: SDC 06:01
PROVIDERS: ATTEND Plastic Surgery
PROC: 0HPU0NZ Removal of Tissue Expander from Left Breast, Open Approach (ICD-10-PCS; principal; 2017-10-01)
PROC: 0HPT0NZ Removal of Tissue Expander from Right Breast, Open Approach (ICD-10-PCS; 2017-10-01)
PROC: 0HRV0JZ Replacement of Bilateral Breast with Synthetic Substitute, Open Approach (ICD-10-PCS; 2017-10-01)
DX: C50.919 Malignant neoplasm of unspecified site of unspecified female breast (principal); J44.9 Chronic obstructive pulmonary disease, unspecified; K21.9 Gastro-esophageal reflux disease without esophagitis; M19.90 Unspecified osteoarthritis, unspecified site; Z79.899 Other long term (current) drug therapy; Z79.51 Long term (current) use of inhaled steroids; Z79.811 Long term (current) use of aromatase inhibitors; Z98.84 Bariatric surgery status; Z80.0 Family history of malignant neoplasm of digestive organs
CPT/HCPCS: 11970; 96374; 96376; L8600; A4216; J0131; J1100; J1580; J1644; J2001; J2250; J2405; J2704; J3010; J3370; J3490

== ENCOUNTER 2017-11-08 10:48 | Outpatient (CLI) | payer MEDICARE, BC | END 2017-11-08 10:49 | disposition home or self-care (01) | LOC: BICMAMMO 10:48 | PROVIDERS: ATTEND Internal Medicine Hematology & Oncology | DX: Z13.820 Encounter for screening for osteoporosis (principal); C50.512 Malignant neoplasm of lower-outer quadrant of left female breast; D50.0 Iron deficiency anemia secondary to blood loss (chronic); M81.0 Age-related osteoporosis without current pathological fracture | CPT/HCPCS: 77080 ==

== ENCOUNTER 2018-06-24 13:54 | Outpatient (CLI) | payer MEDICARE, BC ==
--- NOTE | 2018-06-24 14:43 | RAD ---
EXAM: 7 views of the cervical spine HISTORY: Cervical spondylosis with radiculopathy; the pain runs down both shoulders, left greater diana n right. COMPARISON: None FINDINGS: AP, lateral, oblique, flexion/extension, and open mouth odontoid views of the cervical spin e shows normal height and alignment of the vertebral bodies without fracture or subluxation. Severe degenerative changes are seen with intervertebral disc space narrowing and large osteophytes througho ut cervical spine. Alignment is unchanged with flexion and extension. No prevertebral soft tissue swelling is seen. IMPRESSION: Severe degenerative changes of the cervical spine without acute osseous abnormality.
--- NOTE | 2018-06-24 15:38 | MRI ---
MRI cervical spine noncontrast HISTORY: Neck pain with bilateral arm radiculopathy. FINDINGS: Small lobular cysts of the partially visualized within the left thyroid lobe. There is desiccation of all of the intervertebral disks of the cervical spine with very heterogeneous bone marrow including discogenic endplate changes. Vertebral body heights are maintained. C2-3: Mild osteophytosis. Central canal and neural foramina are patent. C3-4: Osteophytosis. Central canal and right neural foramen are patent. Uuku-ls-cunevhte stenosis of the left neural foramen. C4-5: Mild posterior osteophyte/disc complex. Minimal degenerative spondylolisthesis. Osteophytosis o f the uncovertebral complexes. Moderate to severe right and rytw-ua-fjruhcsc left foraminal stenoses. C6-7: Disc space narrowing. Posterior osteophyte/disc complex and circumferential degenerative change s. Moderate stenosis of the central canal. Moderate right foraminal stenosis. Left neural foramen is patent. C6-7: Disc space narrowing. Mild posterior osteophyte/disc complex and circumferential degenerative c hanges. Moderate stenosis of the central canal. Severe bilateral foraminal stenoses. C7-T1: Mild osteophytosis. Central canal and neural foramina are patent. Disc space narrowing and mild posterior disc bulges are present at the partially visualized upper tho racic levels on the sagittal images. IMPRESSION: Multilevel degenerative changes throughout the cervical spine as detailed above. Central canal and foraminal stenoses are most severe at the C6-7 level.
== END 2018-06-24 13:55 | disposition home or self-care (01) ==
LOC: BICMRI 13:54
PROVIDERS: ATTEND Anesthesiology Pain Medicine
DX: M47.22 Other spondylosis with radiculopathy, cervical region (principal); M48.02 Spinal stenosis, cervical region
CPT/HCPCS: 72052; 72141

== ENCOUNTER 2018-07-01 14:04 | Emergency (ER) | payer MEDICARE, BC ==
[2018-07-01 14:26] LABS: #Basophils 0.1 thou/uL (0.0-0.2); #Eosinphils 0.1 thou/uL (0.0-0.7); #Lymphocytes 1.7 thou/uL (1.20-3.40); #Monocytes 0.7 thou/uL (0.11-0.59); %Basophils 1.2 % (0.0-1.0); %Lymphocytes 30.9 % (21.0-51.0); %Monocytes 12.1 % (0.0-10.0); %Neutrophils 53.8 % (42.0-75.0); Hemoglobin 13.2 g/dL (12.0-16.0); Mean Corpuscular HGB CONC 31.2 g/dL (32.0-36.0); Mean Corpuscular Hemoglobin 28.5 pg (27.0-31.0); Mean Corpuscular Volume 91.3 fL (78.0-98.0); Mean Platelet Volume 6.8 fL (7.4-10.4); Platelet Count 194 thou/uL (130-400); RBC Distribution Width 14.5 % (11.5-14.5); Red Blood Cell (RBC) Count 4.63 mill/uL (4.20-5.40); White Blood Cell (WBC) Count 5.6 thou/uL (4.8-10.8)
[2018-07-01] MEDS ORDERED: Fentanyl 100 MCG/2 ML VIAL ONE (14:32)
[2018-07-01] MEDS ORDERED: Lidocaine Viscous Sol 2% 15 ml UD Cup ONE (14:32)
[2018-07-01] MEDS ORDERED: Mag-Al Plus 1200 MG/1200 MG/120 MG/30 ML UDCUP ONE (14:32)
[2018-07-01] MEDS ORDERED: Famotidine/PF 20 mg/2ml Vial ONE (14:32)
[2018-07-01 14:41] LABS: ALT (SGPT) 22 U/L (8-55); AST (SGOT) 28 U/L (5-34); Albumin 4.1 g/dL (3.4-4.8); Alkaline Phosphatase 101 U/L (40-150); Anion Gap 13 mmol/L (10-20); BUN (Urea Nitrogen) 15 mg/dL (9.8-20.1); Bilirubin, Total 0.5 mg/dL (0.2-1.2); Calc. Creatinine Clearance 0 mL/min (70-130); Calcium 8.9 mg/dL (7.8-10.44); Carbon Dioxide 24 mmol/L (23-31); Chloride 107 mmol/L (98-107); Estimated GFR-MDRD 68; Globulin 2.1 g/dL (2.4-3.5); Glucose 103 mg/dL (83-110); Lipase 56 U/L (8-78); Potassium 4.3 mmol/L (3.5-5.1); Protein, Total 6.2 g/dL (6.0-8.3); Sodium 140 mmol/L (136-145)
[2018-07-01 14:56] LABS: Bilirubin Negative (Negative); Blood, Urine Negative (Negative); Clarity Clear (Clear); Glucose, Urine (Dipstick) Negative (Negative); Leukocyte Negative (Negative); Nitrite Negative (Negative); Protein, Urine (Dipstick) Negative (Neg-Trace); Urobilinogen 0.2 mg/dL (0.2-1.0)
[2018-07-01 14:57] LABS: Specific Gravity, Urine 1.026 (1.002-1.036)
--- NOTE | 2018-07-01 14:58 | RAD ---
CHEST 1 VIEW: Date: 07/01/18 HISTORY: Chest pain. COMPARISON: None. FINDINGS: Lungs are without focal air space consolidation, pneumothorax, or effusion. Heart size upper limits o f normal. Mild levoscoliosis lower thoracic spine. Surgical clips upon the left upper quadrant of the abdomen. IMPRESSION: No acute intrathoracic abnormality. POS: [facility]
--- NOTE | 2018-07-01 15:28 | CT ---
CT ABDOMEN AND PELVIS WITH CONTRAST: Date: 07/01/18 HISTORY: Epigastric pain. COMPARISON: None. FINDINGS: Lung bases are clear. No pericardial effusion. There is suture material at the sigmoid junction. There is no evidence of bowel obstruction. There is abnormal thickening of the gastric antrum. No definite intraluminal gas is appreciated. No dilated loops of large or small bowel. No intrahepatic or extrahepatic biliary dilatation. There i s a small hypodensity in the left lobe of the liver. No hydronephrosis. No abnormal renal mass. Splee n is unremarkable. Mild scoliotic change at the spine. No acute osseous abnormality. IMPRESSION: Abnormal thickening of the gastric antrum and pylorus may be sequelae of an ulcer. No definite extral uminal gas is appreciated. Upper endoscopy may be beneficial in this patient. POS: [facility]
[2018-07-01] MEDS ORDERED: Iopamidol 370 76% 100 ML VIAL ONE (18:09)
== END 2018-07-01 15:33 | disposition home or self-care (01) ==
LOC: SCSER 14:04
DX: R10.13 Epigastric pain (principal); M06.9 Rheumatoid arthritis, unspecified; J18.9 Pneumonia, unspecified organism; Z79.899 Other long term (current) drug therapy
CPT/HCPCS: 71045; 74177; 80053; 81003; 83605; 83690; 84484; 85025; 93005; 96374; 96375; J3010; Q9967; S0028

== ENCOUNTER 2018-10-09 08:06 | Day surgery (SDC) | payer MEDICARE, BC ==
[2018-10-08 11:55] VITALS: BMI 25.7
--- NOTE | 2018-10-08 15:39 | HP ---
HISTORY OF PRESENT ILLNESS: This is a 72-year-old female with status post gastric bypass surgery several years ago. The patient was seen in the ER 3 months ago with acute abdominal pain and had abdominal CAT scan, which was negative. Subsequently, she has had an EGD done, which revealed a very large and deep ulceration at the anastomotic area. There was also foreign body like substance in the anastomotic area. The patient has been having episodes over the last 2 months. Her symptoms markedly improved. She has no abdominal pain, no nausea or vomiting. She is undergoing EGD to document gastric ulcer healing and possible biopsy ulcer. ALLERGIES: NONE. PAST MEDICAL HISTORY: 1. History of breast cancer, status post surgery. 2. Arthritis. 3. Chronic diarrhea. 4. Peripheral neuropathy. 5. Gastric ulcer. SOCIAL HISTORY: The patient does not smoke, but drinks alcohol socially. PHYSICAL EXAMINATION: VITAL SIGNS: Pulse is 70, blood pressure is 130/80. HEENT: Conjunctivae clear. NECK: Supple. No adenitis or thyromegaly noted. CARDIOVASCULAR: First and second heart sounds heard. LUNGS: Clear to auscultation. ABDOMEN: Soft. No organomegaly. No tenderness. No masses. EXTREMITIES: Reveal no edema. ADMITTING DIAGNOSIS: A 72-year-old female status post gastric bypass surgery, has had abdominal pain and was found to have a very large ulcer at the anastomotic area. The patient understands and agrees torepeat EGD and possible biopsy also. Job ID: [id number]
[2018-10-09] MEDS ORDERED: Fentanyl 100 MCG/2 ML VIAL ONE (10:43)
--- NOTE | 2018-10-09 12:24 | CT ---
CT ABDOMEN WITHOUT CONTRAST: Date: 10/09/18 HISTORY: Post EGD. Suture removed during procedure. Concern for perforation. Severe epigastric pain. COMPARISON: Abdomen and pelvis CT dated 07/01/18. FINDINGS: Lung bases are clear. No pericardial effusion. Large volume gas within the large and small bowel, likely from insufflation. No definite free intrape ritoneal gas is appreciated. No free fluid within the abdomen. Prior gastric surgery. IMPRESSION: No evidence of perforation. POS: [facility]
--- NOTE | 2018-10-09 13:54 | OP ---
DATE OF PROCEDURE: 10/09/2018 PROCEDURES PERFORMED: 1. Esophagogastroduodenoscopy. 2. Removal of suture at the distal anastomotic area with a small ulceration. PREOPERATIVE DIAGNOSES: Abdominal pain, gastric ulcer. POSTOPERATIVE DIAGNOSES: 1. Previous gastric bypass surgery. 2. Ulcer seen just below the GE junction appears to be healing and the small colon also left. 3. Two loops what appears to be a sutures at the area of ulceration. DESCRIPTION OF PROCEDURE: The patient was placed on her left lateral position and was given sedation by Anesthesia Department. A Pentax videogastroscope under direct vision passed down the oropharynx, past the GE junction into the stomach. The esophageal mucosa appeared normal. The GE junction, no pathology. The patient had a large gastric ulcer with what appeared suture line two months ago. The ulcers have been 90% healed. The small ulcer left of the suture line. The scope advanced into the small bowel without any difficulty. Attempt was made to remove the suture with the biopsy forceps. One suture was removed easily without difficulty. The second loop would not really come off. There appears to be a knot at one end, which . I tried to pull it out, it would not come out. I grasped the other loop of the suture line and again it did not come off. This was several times tried, but could not really budge. I decided to stop the procedure. The stomach decompressed and the scope removed. The fluid was suctioned out throughout and at the end of the procedure, no fluid seen at throat or esophagus. This is a postprocedure note. The patient was taken to Day surgery and she was very sleepy. After she went to Day surgery, she did have severe abdominal pain over the upper part. The pain was over the epigastric area. She had marked discomfort. She was given fentanyl 20 mcg. The abdomen is firm and tender over the epigastric area. There seen in the neck of the chest wall. The patient was sent for a stat CAT scan. The CAT scan of the abdomen shows large amount of air in the small bowel, but no free air seen. By the time she came back from these CAT scan, she actually appears more relaxed and she is more comfortable. She is actually feeling whole lot better. She was given some clear liquid, I believe, water during the surgery. Abdomen was soft and nondistended and nontender. DISCHARGE PLANNIN. Ms. Gloria Huang is a very pleasant 72-year-old female, came for EGD because of her large gastric ulcer diagnosed two months ago. The patient has had previous gastric bypass surgery. She had an ulcer at the GE junction, which was suture line. She was on PPI over the last couple of months. The ulcer appears to be really healing. One suture was removed without difficulty. The other suture could not come out,despite several times. The CAT scan of the abdomen done at the Day surgery showed no free air. The patient did well postprocedure, being discharged home. She is advised to call me with abdominal pain, hematochezia. 2. Advised omeprazole 40 once a day. She will come back to see me in 2 weeks. Job ID: [id number]
[2018-10-09] MEDS ORDERED: PROPOFOL 200 MG/20 ML VIAL ONE (16:15)
[2018-10-09] MEDS ORDERED: Glycopyrrolate 0.2 MG/ML 5 ML SYRINGE ONE (16:15)
== END 2018-10-09 11:50 | disposition home or self-care (01) ==
LOC: SDC 08:06
PROVIDERS: ATTEND Internal Medicine Gastroenterology
PROC: 0DJ08ZZ Inspection of Upper Intestinal Tract, Via Natural or Artificial Opening Endoscopic (ICD-10-PCS; principal; 2018-10-09)
DX: K25.9 Gastric ulcer, unspecified as acute or chronic, without hemorrhage or perforation (principal); K52.9 Noninfective gastroenteritis and colitis, unspecified; M19.90 Unspecified osteoarthritis, unspecified site; G62.9 Polyneuropathy, unspecified
CPT/HCPCS: 74150; J3010

== ENCOUNTER 2018-10-21 05:53 | Outpatient (CLI) | payer MEDICARE, BC ==
[2018-10-21 14:25] LABS: Hemoglobin 12.5 g/dL (12.0-16.0); Mean Corpuscular HGB CONC 31.5 g/dL (32.0-36.0); Mean Corpuscular Hemoglobin 28.3 pg (27.0-31.0); Mean Corpuscular Volume 89.8 fL (78.0-98.0); Platelet Count 199 thou/uL (130-400); RBC Distribution Width 14.1 % (11.5-14.5); Red Blood Cell (RBC) Count 4.42 mill/uL (4.20-5.40); White Blood Cell (WBC) Count 5.9 thou/uL (4.8-10.8)
[2018-10-21 14:32] LABS: PTT 28.8 SEC (22.9-36.1); Prothrombin Time 12.8 SEC (12.0-14.7)
== END 2018-10-21 05:54 | disposition home or self-care (01) ==
LOC: LABBT 05:53
PROVIDERS: ATTEND Neurological Surgery
DX: Z01.812 Encounter for preprocedural laboratory examination (principal); M47.12 Other spondylosis with myelopathy, cervical region; M50.30 Other cervical disc degeneration, unspecified cervical region; M48.02 Spinal stenosis, cervical region
CPT/HCPCS: 85027; 85610; 85730

== ENCOUNTER 2018-10-22 05:40 | Day surgery (SDC) | payer MEDICARE, BC ==
--- NOTE | 2018-10-18 12:29 | HP ---
HISTORY OF PRESENT ILLNESS: Ms. Huang is a 72-year-old female. She was last seen in our office in 07/2015 for neck pain and worsening cervical stenosis. The patient states she has been through physical therapy injections and her lifestyle continues to decline. Her hands are clumsy and they feel like someone else's hands. She drops items. She has been unable to use them to open things and her balance is decreased significantly. The patient is set up with coping. The patient states that she finished her last round of physical therapy just over a year ago and continues to do some exercises and yoga whenever, however, nothing is making a difference. Injections with Dr. Canales are no longer helping. REVIEW OF SYSTEMS: A 10-point review of systems has been completed and is negative other than stated in the above HPI. PAST MEDICAL HISTORY: Asthma, arthritis, ulcers, hormone replacement therapy, pleurisy, whooping cough, reflux, pneumonia, diverticulitis, melanoma, shingles, rheumatoid arthritis, anemia, and breast cancer in 01/2017. PAST SURGICAL HISTORY: Tonsillectomy, hysterectomy, sinus surgery, colon resection, gastric bypass, lasik, left knee arthroscopy, ulcer repair, peritonitis, eyelid cyst drained, melanoma removed, oophorectomy, hysterectomy, lumpectomy, total mastectomy, and breast reconstruction. FAMILY HISTORY: Father is , diagnosed with diet, heart disease, hypertension, stroke. Mother, unknown. Siblings alive. SOCIAL HISTORY: The patient is a nonsmoker. Denies other tobacco use. Drinks alcohol occasionally. No drug use. She is sexually active. Lives with spouse. Drinks occasional caffeine. MEDICATIONS: 1. Jed. 2. Folic acid. 3. Vitamin D. 4. Duloxetine. 5. Ellipta. 6. Anastrozole. 7. Gas Relief. ALLERGIES: QVAR. PHYSICAL EXAMINATION: CONSTITUTIONAL: The patient is alert and oriented x3. Appears nontoxic. NECK: Soft, supple. No masses are noted. Range of motion is intact. It is decreased and painful. NEUROLOGIC: Awake, alert, and oriented x3. Memory, attention, and fund of knowledge are normal. Cranial nerves grossly intact. RESPIRATIONS: Normal work of breathing on room air. EXTREMITIES: Upper extremities; 5/5 strength in deltoids, biceps, triceps, finger intrinsics. 4/5, right greater than left wrist extension, finger extension. Sensation equal bilaterally. Reflexes symmetric. Gait, tandem and possible. IMAGING: MRI cervical spine, C4-C5, autofused stenosis at C5-C6 and C6-C7, severe. 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 Dr. Saldivar has offered surgery, anterior cervical discectomy and fusion of C5 through C7. The patient states that she understands the risks and is willing to proceed. Job ID: [id number]
[2018-10-21 13:32] VITALS: BMI 26.0
[2018-10-22] MEDS ORDERED: ceFAZolin Sodium (SDC) 2 GM/100 ML BAG ONE ×2 (06:10→12:29)
[2018-10-22] MEDS ORDERED: Sodium Chloride 0.9% 10 ML ONE (06:16)
[2018-10-22] MEDS ORDERED: Fentanyl 100 MCG/2 ML VIAL ONE ×4 (07:08→11:55)
[2018-10-22] MEDS ORDERED: HYDROmorphone 2 MG/ML VIAL ONE (11:16)
--- NOTE | 2018-10-22 11:16 | OP ---
DATE OF PROCEDURE: 10/22/2018 [employer]: Elva Mclaughlin PA-C PREOPERATIVE INDICATION: Prevent neurological deterioration. PREOPERATIVE DIAGNOSES: Cervical intervertebral disk disease with cord compression and myelopathy at C5-C6 and C6-C7. POSTOPERATIVE DIAGNOSES: Cervical intervertebral disk disease with cord compression and myelopathy at C5-C6 and C6-C7. PROCEDURES PERFORMED: Anterior cervical diskectomy, intervertebral arthrodesis, placement of intervertebral biomechanical device, anterior cervical plating C5-C6 and C6-C7, local morselized autograft, morselized allograft, and operating microscope. PREOPERATIVE MEDICATIONS: Ancef 2 g IV. DRAIN NUMBER: Zero. DRAIN TYPE: None. DESCRIPTION OF PROCEDURE: The patient was brought to the operating room. General endotracheal anesthesia was induced. The patient was positioned supine on the operating table with her head supported by a gel-filled doughnut shaped headrest. A lateral fluoro radiograph was used to plan our incision. The right side of the neck was sterilely prepped and draped. We opened with a 10 blade knife and controlled bleeding with bipolar cautery. We dissected sharply to the platysma and cut this muscle in-line with our incision. We continued our dissection medial to the sternocleidomastoid and lateral to the trachea and esophagus down to the prevertebral space. We placed a marker at C5-C6 and took a lateral fluoro radiograph to confirm the levels upon which we were operating. We then elevated the longus colli muscles off the anterior surface of C5, C6, and C7, and placed a self-retaining retractor beneath them. Anterior osteophytes were removed. We placed distraction pins at C5 and C7 and distracted across both of the intervening interspaces. We incised the interspaces with a 15 blade knife and removed disk contents using curettes and rongeurs. The operative microscope was brought into the field. Under microscopic magnification and using microsurgical techniques, we removed the remainder of the intervertebral disk. We accessed the ventral epidural space with micro curette behind large osteophytes. We removed the posterior osteophytes and posterior longitudinal ligament with Kerrison rongeur across the entire interspace from one neural foramen all the way to the other at C5-C6 and at C6-C7. Bleeding in the lateral confines of the spinal canal was controlled with small pledgets of Surgifoam. This was eventually effective. We turned our attention to arthrodesis. We prepared the endplates for grafting using curettes and measured the height of the interspace with a bone rasp. The C6-C7 space measured 7 mm with the C5-C6 space measured 6 mm. The appropriately-sized PEEK intervertebral grafts were brought into the field. Osteophytes removed during our decompression were carefully cleaned of soft tissue attachments, morcellized and the bone was added to demineralized bone matrix to form a fusion substrate. The substrate was packed into the intervertebral grafts and those were advanced into the interspaces under radiographic guidance to the appropriate depth. We removed our distraction pins and took the operating microscope out of the field. A 31 mm anterior cervical plate was brought into the field. We drilled [place] pilot holes through the plate into the vertebral bodies at C5, C6, and C7, and we affixed the plate using 14 mm screws. We engaged the locking mechanism over each of the 6 screws. Fixed angle screws were used at C7 and variable angle screws at C5 and C6. AP and lateral fluoro radiographs confirmed adequate positioning of our instrumentation. We irrigated copiously with bacitracin irrigation. Hemostasis was excellent. We closed in anatomical layers. We applied a sterile dressing. This was a clean case, no contamination. Job ID: [id number]
[2018-10-22] MEDS ORDERED: Ketorolac Tromethamine 30 MG/ML VIAL ONE (11:43)
[2018-10-22] MEDS ORDERED: Acetaminophen/Codeine 30-300mg Tablet ONE (12:30)
[2018-10-22] MEDS ORDERED: tiZANidine HCl 4 MG TAB ONE (12:31)
== END 2018-10-22 14:43 | disposition home or self-care (01) ==
LOC: SDC 05:40
PROVIDERS: ATTEND Neurological Surgery
PROC: 0RG20A0 Fusion of 2 or more Cervical Vertebral Joints with Interbody Fusion Device, Anterior Approach, Anterior Column, Open Approach (ICD-10-PCS; principal; 2018-10-22)
PROC: 0RB30ZZ Excision of Cervical Vertebral Disc, Open Approach (ICD-10-PCS; 2018-10-22)
DX: M50.022 Cervical disc disorder at C5-C6 level with myelopathy (principal); M48.02 Spinal stenosis, cervical region; J45.909 Unspecified asthma, uncomplicated; M06.9 Rheumatoid arthritis, unspecified; K21.9 Gastro-esophageal reflux disease without esophagitis; Z88.8 Allergy status to other drugs, medicaments and biological substances; Z79.811 Long term (current) use of aromatase inhibitors; Z79.899 Other long term (current) drug therapy
CPT/HCPCS: 20930; 20936; 22551; 22552; 22845; 22853 ×2; 76000; C1713 ×2; C1776; L0174; J0131; J0690; J1170; J1885; J3010; J3490

== ENCOUNTER 2018-12-16 12:46 | Outpatient (CLI) | payer MEDICARE, BC ==
--- NOTE | 2018-12-16 14:43 | RAD ---
CERVICAL SPINE 3 VIEWS: Date: 12/16/18 HISTORY: Cervical stenosis and neck pain. Postop. FINDINGS: Anterior plate and screws are noted at C5, C6, and C7 with interbody disc implants at these levels. Prominent degenerative change with loss of disc space at C4-5. Anterior osteophytes and posterior spo ndylosis. IMPRESSION: Postoperative and degenerative changes cervical spine as noted. POS: [facility]
== END 2018-12-16 12:47 | disposition home or self-care (01) ==
LOC: TBSIIMAG 12:46
PROVIDERS: ATTEND Neurological Surgery
DX: M48.02 Spinal stenosis, cervical region (principal); M47.812 Spondylosis without myelopathy or radiculopathy, cervical region; Z98.890 Other specified postprocedural states
CPT/HCPCS: 72040